=== PATIENT | female | born 1965 ===

== ENCOUNTER 2020-09-07 21:44 | Inpatient (IN) ==
[2020-09-07] MEDS ORDERED: IOPAMIDOL 100 ML BOTTLE IV ONE (21:45)
[2020-09-07] MEDS ORDERED: PIPERACILLIN SODIUM/TAZOBACTAM 4.5 GM in DEXTROSE 5% IN WATER 50 ML IV ONE (21:59)
[2020-09-07] MEDS ORDERED: LACTATED RINGERS 1,000 ML IV ONE ×2 (21:59→22:05)
[2020-09-07] MEDS ORDERED: ACETAMINOPHEN 325 MG TABLET PO ONE (22:02)
[2020-09-07] MEDS ORDERED: morphine 2 MG/ML VIAL IV ONE (22:02)
[2020-09-07] MEDS ORDERED: 0.9 % SODIUM CHLORIDE 1,000 ML IV ONE (22:08)
[2020-09-07] MEDS ORDERED: ONDANSETRON 4 MG/2 ML VIAL IV ONE (22:08)
--- NOTE | 2020-09-07 22:17 | Emergency Department Note ---
[facility] General Chief complaint: Abdominal Pain Stated complaint: abdominal pain Time Seen by Provider: 09/07/20 21:53 Source: patient Mode of arrival: ambulatory Limitations: no limitations History of Present Illness HPI Narrative: Narrative: Patient presents to the ED with 1 day of fever, chills, abdominal pain primarily in the left lower quadrant, associated with nausea vomiting but denies diarrhea, bloody stools. Last bowel movement was described as regular and was today. Also associated with headache, fatigue. Patient reports she is otherwise healthy but does have a history of diverticulitis in the past that does somewhat feel similar in the left lower quadrant pain. History of appendectomy in the distant past. Otherwise reports she is healthy does not take any routine medications. She denies any URI symptoms such as congestion rhinorrhea sore throat, no cough or shortness of breath or chest pain. She does endorse questionable slight dysuria, no flank pain, no urinary frequency or hematuria. No other complaints. Symptoms started yesterday evening. Related Data Home Medications Medication Instructions Recorded Confirmed No Known Home Meds 09/08/20 09/08/20 Allergies Allergy/AdvReac Type Severity Reaction Status Date / Time [place] Allergy Intermediate Unknown Verified 09/07/20 21:45 egg Allergy Intermediate Unknown Verified 09/07/20 21:45 Review of Systems ROS ROS Narrative: Narrative: At least 10 systems reviewed and otherwise acutely negative except as in the HPI [facility] Narrative Patient History Narrative: Narrative: Diverticulitis Medical/Surgical/Family History All Active Problems (Updated 09/08/20 @ 03:30 by Dago Aguirre DO) Diverticulitis (Acute) Sepsis (Acute) Social History Smoking Status: Never smoker Exam Narrative Narrative: Narrative: Constitutional: normally developed, appears uncomfortable, Head: Normocephalic, atraumatic, Eyes: No Icterus, ENT: Dry mucus membranes, normal posterior oropharynx Neck: Supple, no meningismus Cardiac: Tachycardic heart sounds, palpable radial pulses, no peripheral edema Pulmonary: Normal respiratory effort. Breath sounds clear, no wheeze, rhonchi, rales, Gastrointestinal: Abdomen soft, non-distended, has some mild tenderness without rebound or rigidity to her left and right lower quadrants, no CVA tenderness Musculoskeletal: No gross deformities, well perfused Skin: warm, dry Neuro: Alert and oriented. General Limitations: no limitations Course Reevaluation(s) Reevaluation #1: Tachycardia improving, blood pressure remained stable, is given some Reglan Benadryl for her headache, still awaiting diagnostic results Time: 23:02 Vital Signs Vital signs: Vital Signs Temperature 39.5 C H 09/07/20 21:46 Pulse Rate 112 H 09/07/20 21:46 Respiratory Rate 24 H 09/07/20 21:46 Blood Pressure 131/71 09/07/20 21:46 Pulse Oximetry (%) 99 09/07/20 21:46 Temperature 37.9 C H 09/08/20 04:10 Pulse Rate 85 09/08/20 04:10 Respiratory Rate 20 09/08/20 04:10 Blood Pressure 114/66 09/08/20 04:10 Pulse Oximetry (%) 99 09/08/20 04:10 MDM MDM Narrative Medical decision making narrative: Narrative: Patient presents with fever chills nausea vomiting and left lower quadrant pain since last night, on presentation she does meet multiple SIRS criteria with tachycardia, tachypnea and febrile a lthough blood pressure is stable. Is not hypoxic. Concern for sepsis intra- abdominal process as well as other infectious source work-up is initiated she is given 30 cc/kg bolus, blood cultures obtained and is given an initial dose of Zosyn for suspected intra-abdominal infection. Are awaiting labs, urinalysis, chest x-ray and CT of the abdomen. Additionally she is given Tylenol for pain and fever as well as morphine for analgesia CBC unremarkable no leukocytosis hemoglobin stable electrolytes unremarkable Lactic acid is normal 1.4 Mildly elevated LFTs with normal bilirubin Urinalysis negative nitrates, negative leukocyte esterase, no bacteria, not suggestive of UTI Chest x-ray per my initial evaluation is negative Did review CT and preliminary result that does show sigmoid diverticulitis with prominent fat stranding, no perforation or abscess Presentation is consistent with acute diverticulitis with sepsis, Following IV fluids analgesia blood pressure remains stable, initial tachycardia remains improved around 100-105, On reevaluation patient also states she is beginning to feel much more comfortable, no new complaints. Will require admission for further management. 0000: house SUP for admission 0130: Reevaluation vitals remain improved, patient reports she continues to feel much better, is now resting comfortably. Awaiting hospitalist yet. 0245: VSS, pt resting comfortably 0320: Received call from hospitalist Dr. Davidson who accepts admission. VSS at time of admission, pt comfortable, no new complaints Lab Data Lab results reviewed: Yes I reviewed the patient's lab results. Result diagrams: 09/07/20 22:11 09/07/20 22:11 Labs: Lab Results 09/07/20 09/07/20 09/07/20 Range/Units 22:00 22:11 22:11 WBC 6.8 (4.5-11.0) K/mcL RBC 4.18 (4.00-5.20) M/mcL Hgb 12.8 (12.0-15.0) g/dL Hct 37.6 (36.0-48.0) % MCV 90.0 (80.0-100.0) fL MCH 30.6 (26.0-34.0) pg MCHC 34.0 (31.0-36.0) g/dL RDW 12.8 (11.5-14.5) % Plt Count 163 (140-440) K/mcL MPV 10.8 H (7.4-10.4) fL Neut % (Auto) 89.2 H (38.0-78.0) % Lymph % (Auto) 5.9 L (15.0-49.0) % [place] % (Auto) 4.1 (1.0-12.0) % Eos % (Auto) 0.4 (0.0-7.0) % Baso % (Auto) 0.4 (0.0-2.0) % Lymph # (Auto) 0.40 L (1.50-4.80) K/mcL [place] # (Auto) 0.28 (0.10-0.90) K/mcL Eos # (Auto) 0.03 (0.00-0.70) K/mcL Baso # (Auto) 0.03 (0.00-0.20) K/mcL Absolute Neutrophils 6.01 (1.80-8.00) K/mcL VBG Lactic Acid (0.5-2.0) mmol/L Sodium 137 (133-145) mmol/L Potassium 3.7 (3.3-5.1) mmol/L Chloride 103 (96-108) mmol/L Carbon Dioxide 20 L (22-30) mmol/L Anion Gap 14.0 (8.0-16.0) BUN 8 (6-20) mg/dL Creatinine 0.5 L (0.6-1.1) mg/dL POC Creatinine 0.4 L (0.6-1.2) mg/dL GFR Calculation 109 Glucose 108 H (70-105) mg/dL Calcium 8.6 (8.6-10.4) mg/dL Total Bilirubin 0.7 (0.1-1.0) mg/dL AST 64 H (<32) U/L ALT 93 H (<40) U/L Alkaline Phosphatase 75 (39-117) U/L Total Protein 6.6 (5.9-8.4) gm/dL Albumin 3.8 (3.2-5.2) gm/dL Globulin 2.8 (2.2-3.7) gm/dL Albumin/Globulin Ratio 1.4 (1.0-2.3) Urine Color Yellow Urine Appearance Clear (Clear) Urine pH 7.0 (5.0-9.0) Ur Specific [place] 1.014 (1.000-1.035) Urine Protein 30 A (Negative) mg/dL Urine Glucose (UA) Negative (Negative) mg/dL Urine Ketones 20 A (Negative) mg/dL Urine Occult Blood 0.03 (Negative) mg/dL Urine Nitrate Negative (Negative) Urine Bilirubin Negative (Negative) mg/dL Urine Urobilinogen 2.0 A mg/dL Ur Leukocyte Esterase Negative (Negative) /ug Urine RBC 10 H (0-3) /hpf Urine WBC 3 (0-4) /hpf Ur Squamous Epith Cells 1 (0-4) /hpf Urine Bacteria None (0) /hpf Ur Culture Indicated? No 09/07/20 Range/Units 22:11 WBC (4.5-11.0) K/mcL RBC (4.00-5.20) M/mcL Hgb (12.0-15.0) g/dL Hct (36.0-48.0) % MCV (80.0-100.0) fL MCH (26.0-34.0) pg MCHC (31.0-36.0) g/dL RDW (11.5-14.5) % Plt Count (140-440) K/mcL MPV (7.4-10.4) fL Neut % (Auto) (38.0-78.0) % Lymph % (Auto) (15.0-49.0) % [place] % (Auto) (1.0-12.0) % Eos % (Auto) (0.0-7.0) % Baso % (Auto) (0.0-2.0) % Lymph # (Auto) (1.50-4.80) K/mcL [place] # (Auto) (0.10-0.90) K/mcL Eos # (Auto) (0.00-0.70) K/mcL Baso # (Auto) (0.00-0.20) K/mcL Absolute Neutrophils (1.80-8.00) K/mcL VBG Lactic Acid 1.4 (0.5-2.0) mmol/L Sodium (133-145) mmol/L Potassium (3.3-5.1) mmol/L Chloride (96-108) mmol/L Carbon Dioxide (22-30) mmol/L Anion Gap (8.0-16.0) BUN (6-20) mg/dL Creatinine (0.6-1.1) mg/dL POC Creatinine (0.6-1.2) mg/dL GFR Calculation Glucose (70-105) mg/dL Calcium (8.6-10.4) mg/dL Total Bilirubin (0.1-1.0) mg/dL AST (<32) U/L ALT (<40) U/L Alkaline Phosphatase (39-117) U/L Total Protein (5.9-8.4) gm/dL Albumin (3.2-5.2) gm/dL Globulin (2.2-3.7) gm/dL Albumin/Globulin Ratio (1.0-2.3) Urine Color Urine Appearance (Clear) Urine pH (5.0-9.0) Ur Specific [place] (1.000-1.035) Urine Protein (Negative) mg/dL Urine Glucose (UA) (Negative) mg/dL Urine Ketones (Negative) mg/dL Urine Occult Blood (Negative) mg/dL Urine Nitrate (Negative) Urine Bilirubin (Negative) mg/dL Urine Urobilinogen mg/dL Ur Leukocyte Esterase (Negative) /ug Urine RBC (0-3) /hpf Urine WBC (0-4) /hpf Ur Squamous Epith Cells (0-4) /hpf Urine Bacteria (0) /hpf Ur Culture Indicated? ED POC Tests ED POC Tests: JAVY - SARS Antigen Negative CC TIME Critical Care Time Critical Care Time: Yes Attestation: Critical Care Time Total CriticalCare time was at least 35 minutes, excluding separately reportable procedures. There was a high probability of clinically significant/life threatening deterioration in the patient's condition which required my urgent intervention. Interventions include early IV fluids and antibiotics, frequent hemodynamic monitoring of sepsis Discharge Plan Patient/Caregiver Discharge Instructions Pt seen by PAYER SPECIALIST/PA only: No Clinical Impression: Diverticulitis Sepsis Qualifiers: Sepsis type: sepsis due to unspecified organism Sepsis acute organ dysfunction status: without acute organ dysfunction Qualified Code(s): A41.9 - Sepsis, unspecified organism Patient Disposition: Xfer As Inpt ([facility]) Condition: Fair Discharge Date/Time: 09/08/20 04:05
[2020-09-07 22:28] LABS: POC Creatinine 0.4 mg/dL (0.6-1.2)
[2020-09-07] MEDS ORDERED: diphenhydrAMINE 50 MG/ML VIAL IV ONE (23:01)
[2020-09-07] MEDS ORDERED: METOCLOPRAMIDE 10 MG/2 ML VIAL IV ONE (23:01)
[2020-09-07 23:06] LABS: Basophils # (Auto) 0.03 K/mcL (0.00-0.20); Basophils % (Auto) 0.4 % (0.0-2.0); Eosinophils # (Auto) 0.03 K/mcL (0.00-0.70); Eosinophils % (Auto) 0.4 % (0.0-7.0); Hematocrit 37.6 % (36.0-48.0); Hemoglobin 12.8 g/dL (12.0-15.0); Lymphocytes % (Auto) 5.9 % (15.0-49.0); Mean Platelet Volume 10.8 fL (7.4-10.4); Monocytes # (Auto) 0.28 K/mcL (0.10-0.90); Monocytes % (Auto) 4.1 % (1.0-12.0); Neutrophils % (Auto) 89.2 % (38.0-78.0); Platelet Count 163 K/mcL (140-440); RBC 4.18 M/mcL (4.00-5.20); Red Cell Distribution Width 12.8 % (11.5-14.5); WBC 6.8 K/mcL (4.5-11.0)
[2020-09-07 23:09] LABS: Appearance,Urine CLEAR (Clear); Bilirubin,Urine Negative (Negative); Color,Urine YELLOW; Culture Indicated,Urine No; Glucose,Urine (UA) Negative (Negative); Ketones,Urine 20 mg/dL (Negative); Leukocyte Esterase,Urine Negative /ug (Negative); Nitrate,Urine Negative (Negative); Protein,Urine 30 mg/dL (Negative); Specific Gravity,Urine 1.014 (1.000-1.035); Urine Blood 0.03 mg/dL (Negative); Urine RBC 10 /hpf (0-3); Urine Squamous Epithelial Cell 1 /hpf (0-4); Urine WBC 3 /hpf (0-4)
[2020-09-07 23:23] LABS: ALT/SGPT 93 U/L (<40); AST/SGOT 64 U/L (<32); Albumin 3.8 gm/dL (3.2-5.2); Albumin/Globulin Ratio 1.4 (1.0-2.3); Alkaline Phosphatase 75 U/L (39-117); Bilirubin,Total 0.7 mg/dL (0.1-1.0); Blood Urea Nitrogen 8 mg/dL (6-20); Calcium 8.6 mg/dL (8.6-10.4); Carbon Dioxide 20 mmol/L (22-30); Chloride 103 mmol/L (96-108); Globulin 2.8 gm/dL (2.2-3.7); Glomerular Filtration Rate 109; Glucose 108 mg/dL (70-105)
[2020-09-08] MEDS ORDERED: ONDANSETRON 4 MG/2 ML VIAL IV PRN ×2 (03:50→08:01)
[2020-09-08] MEDS: LACTATED RINGERS 1,000 ML IV SCH ×3 (04:15→23:59)
[2020-09-08] MEDS: ACETAMINOPHEN 325 MG TABLET PO PRN ×4 (04:25→23:39)
[2020-09-08] MEDS: PIPERACILLIN SODIUM/TAZOBACTAM 4.5 GM in DEXTROSE 5% IN WATER 50 ML IV SCH ×3 (05:35→21:02)
[2020-09-08 05:49] LABS: Basophils # (Auto) 0.02 K/mcL (0.00-0.20); Basophils % (Auto) 0.3 % (0.0-2.0); Eosinophils # (Auto) 0 K/mcL (0.00-0.70); Eosinophils % (Auto) 0 % (0.0-7.0); Hematocrit 34.4 % (36.0-48.0); Hemoglobin 11.7 g/dL (12.0-15.0); Lymphocytes # (Auto) 0.56 K/mcL (1.50-4.80); Lymphocytes % (Auto) 9.3 % (15.0-49.0); Mean Cell Volume 91.7 fL (80.0-100.0); Mean Platelet Volume 10.8 fL (7.4-10.4); Monocytes % (Auto) 6.7 % (1.0-12.0); Neutrophils % (Auto) 83.7 % (38.0-78.0); Platelet Count 134 K/mcL (140-440); RBC 3.75 M/mcL (4.00-5.20); Red Cell Distribution Width 12.9 % (11.5-14.5)
[2020-09-08 06:08] LABS: ALT/SGPT 77 U/L (<40); AST/SGOT 48 U/L (<32); Albumin 3.3 gm/dL (3.2-5.2); Albumin/Globulin Ratio 1.2 (1.0-2.3); Alkaline Phosphatase 68 U/L (39-117); Bilirubin,Direct 0.2 mg/dL (<0.3); Bilirubin,Total 0.6 mg/dL (0.1-1.0); Blood Urea Nitrogen 6 mg/dL (6-20); Calcium 8.1 mg/dL (8.6-10.4); Carbon Dioxide 23 mmol/L (22-30); Chloride 105 mmol/L (96-108); Globulin 2.7 gm/dL (2.2-3.7); Glomerular Filtration Rate 103; Glucose 104 mg/dL (70-105); Lactate Dehydrogenase 159 U/L (135-225); Phosphorous 3.1 mg/dL (2.5-4.5); Triglycerides 56 mg/dL (<150); Uric Acid 2.8 mg/dL (2.5-8.0)
--- NOTE | 2020-09-08 07:06 | Internal Med History&Physical ---
HPI History of Present Illness Patient information: Note initiated : 09/08/20 at 6:59 am Service Date, if different from initiated Date: [] Patient: Liana Mckeon a 55 y/o F admitted on 09/08/20 for Abdominal Pain. Chief Complaint: [] History of present illness: Ms. Mckeon is a 55 year old F Patient presents the ED with fever chills nausea vomiting headache left lower quadrant abdominal pain. In the ED she was tachycardic and have had a fever of 103. She had a low blood pressure systolic in the low 90s. Lactate was within normal limits. She had a CT abdomen pelvis which showed diverticulitis. She was hydrated with IV fluid with improvement in blood pressure and heart rate and she was given Zosyn. Patient stated started Sunday she got home from work and she developed shaking chills. Pain is described as sharp Provera left lower. Review of Systems: Pertinent positives as above. Denies chest pain/cough/dyspnea/diarrhea. Remaining 10 point review of system reviewed negative PFSH PFSH All Active Problems (Updated 09/08/20 @ 03:30 by Dago Aguirre DO) Diverticulitis (Acute) Sepsis (Acute) Social History (Updated 09/08/20 @ 08:01 by Reid Davidson DO) additional history: Past medical history: Nothing per patient Past surgical history: She had a appendectomy Social history: Patient quit smoking 1998 no alcohol or drug since 1994 and lives at home with family MEDS/ALLERGIES Home Medications and Allergies Home Medications Medication Instructions Recorded Confirmed Type No Known Home Meds 09/08/20 09/08/20 History Allergies Allergy/AdvReac Type Severity Reaction Status Date / Time [place] Allergy Intermediate Unknown Verified 09/07/20 21:45 egg Allergy Intermediate Unknown Verified 09/07/20 21:45 EXAM Constitutional Vitals: Temp Pulse Resp BP Pulse Ox 100.3 F H 85 20 114/66 99 09/08/20 04:10 09/08/20 04:10 09/08/20 04:10 09/08/20 04:10 09/08/20 04:10 DATA Data Completed and Pending Labs: Labs from last 24 hours 09/08/20 09/08/20 09/07/20 05:01 05:01 22:11 WBC 6.0 RBC 3.75 L Hgb 11.7 L Hct 34.4 L MCV 91.7 MCH 31.2 MCHC 34.0 RDW 12.9 Plt Count 134 L MPV 10.8 H Neut % (Auto) 83.7 H Lymph % (Auto) 9.3 L [place] % (Auto) 6.7 Eos % (Auto) 0 Baso % (Auto) 0.3 Lymph # (Auto) 0.56 L [place] # (Auto) 0.40 Eos # (Auto) 0 Baso # (Auto) 0.02 Absolute Neutrophils 5.02 VBG Lactic Acid 1.4 Sodium 138 Potassium 3.7 Chloride 105 Carbon Dioxide 23 Anion Gap 10.0 BUN 6 Creatinine 0.6 POC Creatinine GFR Calculation 103 Glucose 104 Uric Acid 2.8 Calcium 8.1 L Phosphorus 3.1 Magnesium 1.9 Total Bilirubin 0.6 Direct Bilirubin 0.2 GGT 39 H AST 48 H ALT 77 H Alkaline Phosphatase 68 Lactate Dehydrogenase 159 Total Protein 6.0 Albumin 3.3 Globulin 2.7 Albumin/Globulin Ratio 1.2 Triglycerides 56 Urine Color Urine Appearance Urine pH Ur Specific [place] Urine Protein Urine Glucose (UA) Urine Ketones Urine Occult Blood Urine Nitrate Urine Bilirubin Urine Urobilinogen Ur Leukocyte Esterase Urine RBC Urine WBC Ur Squamous Epith Cells Urine Bacteria Ur Culture Indicated? 09/07/20 09/07/20 09/07/20 22:11 22:11 22:00 WBC 6.8 RBC 4.18 Hgb 12.8 Hct 37.6 MCV 90.0 MCH 30.6 MCHC 34.0 RDW 12.8 Plt Count 163 MPV 10.8 H Neut % (Auto) 89.2 H Lymph % (Auto) 5.9 L [place] % (Auto) 4.1 Eos % (Auto) 0.4 Baso % (Auto) 0.4 Lymph # (Auto) 0.40 L [place] # (Auto) 0.28 Eos # (Auto) 0.03 Baso # (Auto) 0.03 Absolute Neutrophils 6.01 VBG Lactic Acid Sodium 137 Potassium 3.7 Chloride 103 Carbon Dioxide 20 L Anion Gap 14.0 BUN 8 Creatinine 0.5 L POC Creatinine 0.4 L GFR Calculation 109 Glucose 108 H Uric Acid Calcium 8.6 Phosphorus Magnesium Total Bilirubin 0.7 Direct Bilirubin GGT AST 64 H ALT 93 H Alkaline Phosphatase 75 Lactate Dehydrogenase Total Protein 6.6 Albumin 3.8 Globulin 2.8 Albumin/Globulin Ratio 1.4 Triglycerides Urine Color Yellow Urine Appearance Clear Urine pH 7.0 Ur Specific [place] 1.014 Urine Protein 30 A Urine Glucose (UA) Negative Urine Ketones 20 A Urine Occult Blood 0.03 Urine Nitrate Negative Urine Bilirubin Negative Urine Urobilinogen 2.0 A Ur Leukocyte Esterase Negative Urine RBC 10 H Urine WBC 3 Ur Squamous Epith Cells 1 Urine Bacteria None Ur Culture Indicated? No A/P Narrative A/P Narrative: A: *Acute diverticulitis: *Sepsis: *Mild transaminitis: Improved * P: -IVF -Zosyn -clear diet, advance as tolerated - -pt;ot -ppx: Lovenox Time Spent With Patient Time: Total time spent is greater than 50% in coordination of care (as documented) at patient's floor/unit and/or counseling patient: QUALITY Stroke Symptom Onset Unknown: No VTE Deep Vein Thrombosis/Pulmonary Embolism Present on Admission: No
--- NOTE | 2020-09-08 07:53 | XRay Report ---
HISTORY: Sepsis, abdominal pain FINDINGS: Lungs are clear and well expanded without evidence of pneumonia or inflammation. No pleural effusion or adenopathy. The heart size is normal. IMPRESSION: Normal chest Interpreted and Authenticated by: Paul Hancock 09/08/20
--- NOTE | 2020-09-08 07:59 | Cat Scan Report ---
History: Left lower quadrant pain with sepsis TECHNIQUE: The patient was imaged following intravenous contrast scanning during the portal venous phase from the diaphragm through the symphysis pubis. Sagittal and coronal reformats were created. The radiation exposure was limited using dose reduction technology. FINDINGS: Lung bases are clear. The liver and spleen are normal in size and homogeneous. The gallbladder and bile ducts are normal with no dilatation inflammation or stone. The pancreas is normal with no mass or inflammation. The adrenals and kidneys are normal and symmetric. There is no evidence of pyelonephritis. No kidney stone or hydronephrosis are present. There are multiple diverticula throughout the large intestine with the greatest concentration in the sigmoid colon. There are inflamed diverticulum along the lateral wall of the mid sigmoid colon with significant inflammation of the surrounding fat. Small amount of free fluid is present deep in the pelvis. No abscess is present. There is no free intraperitoneal air. No bowel obstruction is present. Small intestine is normal. The appendix has been removed. No abnormality is seen in the uterus or ovaries. Urinary bladder is normally distended and has a smooth contour. Moderate amount calcified plaque is present along the wall of a normal caliber abdominal aorta. IMPRESSION: Acute sigmoid diverticulitis Interpreted and Authenticated by: Paul Hancock 09/08/20
[2020-09-08] MEDS ORDERED: MAGNESIUM SULFATE 2 GM/50 ML BAG IV PRN (08:01)
[2020-09-08] MEDS ORDERED: IPRATROPIUM/ALBUTEROL 3 ML AMPUL.NEB NEB PRN (08:01)
[2020-09-08] MEDS ORDERED: HYDROcodone/APAP 5/325MG TABLET PO PRN (08:01)
[2020-09-08] MEDS ORDERED: POTASSIUM CHLORIDE 40 MEQ in DEXTROSE 5% IN WATER 500 ML IV PRN (08:01)
[2020-09-08] MEDS ORDERED: POTASSIUM CHLORIDE 20 MEQ TABLET PO PRN ×2 (08:01)
[2020-09-08] MEDS ORDERED: POLYETHYLENE GLYCOL 3350 17 GM PACKET PO PRN (08:01)
[2020-09-08 08:03] LABS: Band Neutrophils % 13 % (0-10); Eosinophils % (Manual) 1 % (0-7); Lymphocytes % 7 % (15-49); Monocytes % (Manual) 2 % (1-12); Platelet Estimate DECREASED (Normal); RBC Morphology NORMAL (Normal); Reactive Lymphocytes 2 % (0-2); Segmented Neutrophils % 75 % (38-78)
[2020-09-08] MEDS: ENOXAPARIN 40 MG/0.4 ML SYRINGE SQ SCH (08:47)
[2020-09-08] MEDS: 0.9 % SODIUM CHLORIDE 10 ML SYRINGE IV SCH ×2 (13:48→21:02)
[2020-09-09] MEDS: LACTATED RINGERS 1,000 ML IV SCH (02:57)
[2020-09-09] MEDS: 0.9 % SODIUM CHLORIDE 10 ML SYRINGE IV SCH ×3 (05:21→22:42)
[2020-09-09] MEDS: PIPERACILLIN SODIUM/TAZOBACTAM 4.5 GM in DEXTROSE 5% IN WATER 50 ML IV SCH ×3 (05:21→22:43)
[2020-09-09 07:19] LABS: Hematocrit 32.5 % (36.0-48.0); Hemoglobin 11.1 g/dL (12.0-15.0); Mean Cell Volume 91.5 fL (80.0-100.0); Mean Corpuscular HGB Conc 34.2 g/dL (31.0-36.0); Mean Platelet Volume 11.1 fL (7.4-10.4); Platelet Count 142 K/mcL (140-440); RBC 3.55 M/mcL (4.00-5.20); Red Cell Distribution Width 12.8 % (11.5-14.5); WBC 6.4 K/mcL (4.5-11.0)
--- NOTE | 2020-09-09 08:03 | Internal Med Progress Note ---
SUBJECTIVE Subjective Patient information: Note initiated : 09/09/20 at 7:58 am Service Date, if different from initiated Date: [] Patient: Liana Mckeon 55 y/o F admitted on 09/08/20 for Abdominal Pain. Chief Complaint: [] Interval history: History of present illness: Ms. Mckeon is a 55 year old F Patient presents the ED with fever chills nausea vomiting headache left lower quadrant abdominal pain. In the ED she was tachycardic and have had a fever of 103. She had a low blood pressure systolic in the low 90s. Lactate was within normal limits. She had a CT abdomen pelvis which showed diverticulitis. She was hydrated with IV fluid with improvement in blood pressure and heart rate and she was given Zosyn. Patient stated started Sunday she got home from work and she developed shaking chills. Pain is described as sharp Provera left lower. 09/09 Patient febrile last night feeling little better today. Nominal pain present but improving. Did have an episode of diarrhea this morning. Review of Systems: denies headache/chills/nausea/vomiting/chest or abdominal pain/cough/dyspnea. Otherwise see above. Constitutional Vitals: Vital Signs Temp Pulse Resp BP Pulse Ox 98.7 F 75 20 125/62 96 09/09/20 07:36 09/09/20 07:36 09/09/20 07:36 09/09/20 07:36 09/09/20 07:44 Period Temp Pulse Resp BP Sys/[place] Pulse Ox Last 24 Hr 98.1 F-100.9 F 75-85 14-20 95-125/54-67 94-99 Intake and Output 09/08/20 09/09/20 09/09/20 21:59 05:59 13:59 Intake Total 1650 1590 Output Total 500 Balance 1650 1090 Weight 70.76 kg Intake & Output: Intake & Output 09/08/20 09/09/20 09/09/20 21:59 05:59 13:59 Intake Total 1650 1590 Output Total 500 Balance 1650 1090 Weight 70.76 kg Intake: IV 1000 1050 Lactated Ringers 1,000 ml @ 751 [id number] 8428 mls/hr IV .Q10H [facility] Rx#: [id number] Zosyn 4.5 gm In Dextrose 5% in 100 50 Water 50 ml @ 100 mls/hr IV Q8H [facility] Rx#:[id number] Oral 650 540 Output: Void Amount 500 Other: Meal Dinner Percent of Meal Consumed 75% Feeding Ability Independent Urine Appearance Clear Urine Color Bright Yellow # Voids 1 Exam: General: Alert, Awake, No acute Distress Eyes/N/T: EOMI, Head/Neck: neck supple, CV: RRR, No murmurs, Pulm: Clear b/l, no wheezing/rhonchi/rales Abd: soft, TTP LLQ, + BS x4 Ext: no clubbing/cyanosis/edema Neuro: Alert, no focal deficits, moves all extremities, Skin: warm/dry OBJ DATA Labs CBC & Chem 7: 09/09/20 04:32 09/09/20 04:32 Labs: Abnormal Lab Results 09/09/20 09/08/20 09/08/20 04:32 05:01 05:01 RBC 3.55 L Hgb 11.1 L Hct 32.5 L Plt Count MPV 11.1 H Neut % (Auto) Lymph % (Auto) Lymph # (Auto) Band Neutrophils % 13 H Lymphocytes % 7 L Platelet Estimate Decreased A Carbon Dioxide Creatinine POC Creatinine Glucose Calcium 8.1 L GGT 39 H AST 48 H ALT 77 H Urine Protein Urine Ketones Urine Urobilinogen Urine RBC 09/08/20 09/07/20 09/07/20 05:01 22:11 22:11 RBC 3.75 L Hgb 11.7 L Hct 34.4 L Plt Count 134 L MPV 10.8 H 10.8 H Neut % (Auto) 83.7 H 89.2 H Lymph % (Auto) 9.3 L 5.9 L Lymph # (Auto) 0.56 L 0.40 L Band Neutrophils % Lymphocytes % Platelet Estimate Carbon Dioxide 20 L Creatinine 0.5 L POC Creatinine 0.4 L Glucose 108 H Calcium GGT AST 64 H ALT 93 H Urine Protein Urine Ketones Urine Urobilinogen Urine RBC 09/07/20 22:00 RBC Hgb Hct Plt Count MPV Neut % (Auto) Lymph % (Auto) Lymph # (Auto) Band Neutrophils % Lymphocytes % Platelet Estimate Carbon Dioxide Creatinine POC Creatinine Glucose Calcium GGT AST ALT Urine Protein 30 A Urine Ketones 20 A Urine Urobilinogen 2.0 A Urine RBC 10 H Meds: Medications Acetaminophen (Acetaminophen 325 Mg Tablet) 650 mg PO Q6HP PRN; Protocol PRN Reason: Per Pain Protocol/Fever > 101 Last Admin: 09/08/20 23:39 Dose: 650 mg Documented by: Hydrocodone Bitart/Acetaminophen (Hydrocodone/Apap 5/325mg Tablet) 1 tab PO Q4HP PRN PRN Reason: PAIN LEVEL 3-6 Albuterol/Ipratropium (Ipratropium/Albuterol 3 Ml Ampul.Neb) 3 ml NEB Q4HP PRN PRN Reason: Shortness Of Breath Enoxaparin Sodium (Enoxaparin 40 Mg/0.4 Ml Syringe) 40 mg SQ DAILY [facility] Last Admin: 09/08/20 08:47 Dose: 40 mg Documented by: Lactated Ringer's (Lactated Ringers) 1,000 mls @ 100 mls/hr IV .Q10H [facility] Last Admin: 09/09/20 02:57 Dose: 100 mls/hr Documented by: Piperacillin Sod/Tazobactam (Sod 4.5 gm/ Dextrose) 50 mls @ 100 mls/hr IV Q8H [facility]; Protocol Last Infusion: 09/09/20 05:51 Dose: Infused Documented by: Potassium Chloride 40 meq/ (Dextrose) 520 mls @ 130 mls/hr IV UD PRN PRN Reason: Potassium < 3 Magnesium Sulfate (Magnesium Sulfate) 2 gm in 50 mls @ 50 mls/hr IV UD PRN PRN Reason: Magnesium </= 1.6 Ondansetron HCl (Ondansetron 4 Mg/2 Ml Vial) 4 mg IV Q4HP PRN; Protocol PRN Reason: Nausea And Vomiting Ondansetron HCl (Ondansetron 4 Mg/2 Ml Vial) 4 mg IV Q4HP PRN PRN Reason: Nausea And Vomiting Polyethylene Glycol (Polyethylene Glycol 3350 17 Gm Packet) 17 gm PO DAILYP PRN PRN Reason: Constipation Potassium Chloride (Potassium Chloride 20 Meq Tablet) 40 meq PO UD PRN PRN Reason: Potssium is 3-3.5 Potassium Chloride (Potassium Chloride 20 Meq Tablet) 40 meq PO UD PRN PRN Reason: Potassium < 3 Sodium Chloride (0.9 % Sodium Chloride 10 Ml Syringe) 10 ml IV Q8 [facility] Last Admin: 09/09/20 05:21 Dose: 10 ml Documented by: A/P Narrative A/P Narrative: A: *Acute diverticulitis: *Sepsis: -febrile o/n, bandemia improved *Mild transaminitis: Improved P: -IVF d/c -Zosyn -advance diet to full and continue to advance as tolerated -pt;ot -ppx: Lovenox Time Spent With Patient Time: Total time spent is greater than 50% in coordination of care (as docume nted) at patient's floor/unit and/or counseling patient: QUALITY Stroke Symptom Onset Unknown: No VTE Deep Vein Thrombosis/Pulmonary Embolism Present on Admission: No
[2020-09-09 08:21] LABS: Band Neutrophils % 5 % (0-10); Eosinophils % (Manual) 3 % (0-7); Lymphocytes % 16 % (15-49); Monocytes % (Manual) 9 % (1-12); Platelet Estimate NORMAL (Normal); RBC Morphology NORMAL (Normal); Reactive Lymphocytes 2 % (0-2); Segmented Neutrophils % 65 % (38-78)
[2020-09-09 08:33] LABS: Blood Urea Nitrogen 4 mg/dL (6-20); Calcium 8.3 mg/dL (8.6-10.4); Carbon Dioxide 26 mmol/L (22-30); Chloride 106 mmol/L (96-108); Glomerular Filtration Rate 109; Glucose 84 mg/dL (70-105)
[2020-09-09] MEDS: ACETAMINOPHEN 325 MG TABLET PO PRN ×3 (08:57→22:39)
[2020-09-09] MEDS: ENOXAPARIN 40 MG/0.4 ML SYRINGE SQ SCH (08:58)
[2020-09-09] MEDS: LACTOBACILLUS 1 CAPSULE PO SCH ×2 (16:16→17:18)
[2020-09-10] MEDS: PIPERACILLIN SODIUM/TAZOBACTAM 4.5 GM in DEXTROSE 5% IN WATER 50 ML IV SCH (05:54)
[2020-09-10] MEDS: 0.9 % SODIUM CHLORIDE 10 ML SYRINGE IV SCH (05:54)
[2020-09-10] MEDS: ENOXAPARIN 40 MG/0.4 ML SYRINGE SQ SCH (08:51)
[2020-09-10] MEDS: LACTOBACILLUS 1 CAPSULE PO SCH (08:51)
--- NOTE | 2020-09-10 10:43 | Discharge Summary ---
Discharge Provider Provider Patient information: Note initiated : 09/10/20 at 10:41 am Service Date, if different from initiated Date: [] Patient: Liana Mckeon 55 y/o F admitted on 09/08/20 for Abdominal Pain. Chief Complaint: [] Date of admission: 09/08/20 04:04 Discharge date: 09/10/20 Primary care physician: Mike Wang Consults: 09/07/20 Consult to Physician [CONS] Stat Comment: Consulting Provider: Reid Davidson Reason For Exam: Physician to Consult Discharge Meds Discharge Medications Home Medications amoxicillin-pot clavulanate [Augmentin] 1 tab PO BID 9 Days #18 tab 09/10/20 [Rx Last Taken Unknown] COURSE Hospital Course Hospital course: Ms. Mckeon is a 55 year old F Patient presents the ED with fever chills nausea vomiting headache left lower quadrant abdominal pain. In the ED she was tachycardic and have had a fever of 103. She had a low blood pressure systolic in the low 90s. Lactate was within normal limits. She had a CT abdomen pelvis which showed diverticulitis. She was hydrated with IV fluid with improvement in blood pressure and heart rate and she was given Zosyn. Patient stated started Sunday she got home from work and she developed shaking chills. Pain is described as sharp Provera left lower. 09/09 Patient febrile last night feeling little better today. Nominal pain present but improving. Did have an episode of diarrhea this morning. 09/10 Pain improved, eating full liquid diet. 1/2 blood cultures positive for gram negative bacillus. Discharged to home on Augmentin to complete 10 days of antibiotic and full liquid diet for a couple more days. Physical exam Head: Atraumatic, normal inspection. Eyes: normal appearance, no scleral icterus. Neck: full ROM Respiratory: no respiratory distress. Cardiovascular: normal rate and rhythm, S1, S2. GI/Abdominal: soft, nontender, no guarding. Extremities: full range of motion, nontender. Neurological: CN II-XII intact, intact motor, intact sensation. Psychiatric: normal mood. Skin: warm, normal color Discharge diagnosis: Acute sigmoid diverticulitis Time Spent with Patient Time attestation: Total time spent providing and/or coordinating discharge services: EXAM Constitutional Vitals: Temp Pulse Resp BP Pulse Ox 98.5 F 61 16 116/68 97 09/10/20 07:51 09/10/20 07:51 09/10/20 07:51 09/10/20 07:51 09/10/20 07:51 Discharge Data Data Completed and Pending Labs on day of discharge: Preliminary micro results at discharge 09/07/20 22:11 Blood Culture - Preliminary Blood Gram negative bacillus 09/07/20 22:15 Blood Culture - Preliminary Blood Discharge Plan Patient/Caregiver Discharge Instructions Activity: increase activity as tolerated Diet: Full Liquid Prescriptions: New amoxicillin-pot clavulanate [Augmentin] 875-125 mg tablet 1 tab PO BID 9 Days Qty: 18 RF: 0 Follow Up Plan Follow up with: Mike Wang MD [Primary Care Provider] - Patient Disposition: Home, Self-Care Prognosis: Fair Discharge Orders: Discharge Order (Routine); Ordered 09/10/20 Ordered By: Raman Fontanez QUALITY VTE Deep Vein Thrombosis/Pulmonary Embolism Present on Admission: No
== END 2020-09-10 13:30 | disposition home or self-care (01) | DRG 872 ==
LOC: ED 21:44 → MEDSUR 09-08 04:04
PROVIDERS: ADMIT Internal Medicine; ATTEND Internal Medicine